=== PATIENT | male | born 1955 | race Caucasian/White ===

== ENCOUNTER 2019-01-01 06:37 | Day surgery (SDC) | payer OTHER ==
[~2019-01-01] VITALS: Ht 177.8 cm; Wt 141.0 kg
[~2019-01-01 06:37] MED LIST: ATOR40TA PO; ATOR80 PO; Aspir 8181 MG PO; CARV6.25 PO; LOSARTAN-HCTZ1 EACH PO; LOSHYD PO; METF500 PO; TEMA30 PO; Testopel75 MG SL
--- NOTE | 2019-01-01 07:28 | NUR ---
Ambulatory in Day Surgery. Patient states colon prep results clear. History, Chart, Medications and Allergies reviewed before start of procedure. Lungs clear T/O to Auscultation. Patient confirms NPO status and agrees with scheduled surgery. Pre-Op teaching done. Pt verbalizes understanding. Patient States Post-Procedure ride home has been arranged.
--- NOTE | 2019-01-01 07:57 | NUR ---
01/01/19 0757 Shayna Rose History, Chart, Medications and Allergies reviewed before start of procedure. Patient confirms NPO status and agrees with scheduled surgery. PATIENT DETERMINED TO BE ASA APPROPRIATE FOR MODERATE SEDATION PRIOR TO START OF PROCEDURE BY DR. CHACON. 3-LEAD EKG REVIEWED WITH PHYSICIAN PRIOR TO START OF PROCEDURE. MONITOR INTACT WITH CONTINUOUS PULSE OXIMETRY AND INTERMITTENT BP.
--- NOTE | 2019-01-01 08:55 | NUR ---
"DAY SURGERY RN | DISCHARGE VSS. A/O. TOLERATING PO FLUIDS. DISCHARGE INSTRUCTIONS GIVEN WITH FAMILY PRESENT. DENIES FURTHER QUESTIONS. TAKEN IN WHEELCHAIR TO FRONT ENTRANCE BY THIS RN. FAMILY IS RIDE HOME."
== END 2019-01-01 22:47 | disposition home or self-care (01) ==
LOC: ORSCMMR 06:37 → ORD 08:00 → ORSCMMR 08:00
PROVIDERS: Internal Medicine Gastroenterology
PROC: 0DBN8ZX Excision of Sigmoid Colon, Via Natural or Artificial Opening Endoscopic, Diagnostic (ICD-10-PCS; principal; 2019-01-01 08:00)
DX: Z12.11 Encounter for screening for malignant neoplasm of colon (principal); Z86.010 Personal history of colon polyps; Z80.0 Family history of malignant neoplasm of digestive organs; K63.5 Polyp of colon; E11.9 Type 2 diabetes mellitus without complications; E78.00 Pure hypercholesterolemia, unspecified; I10 Essential (primary) hypertension; E66.9 Obesity, unspecified; Z68.41 Body mass index [BMI] 40.0-44.9, adult; G47.30 Sleep apnea, unspecified; Z79.84 Long term (current) use of oral hypoglycemic drugs; Z79.899 Other long term (current) drug therapy
CPT/HCPCS: 82947; 88305; J2250; J3010; J7120